=== PATIENT | female | born 1945 | race Native Hawaiian/Other Pacific Islander ===

== ENCOUNTER 2017-01-11 13:07 | Inpatient (IN) | payer OTHER ==
[~2017-01-11] VITALS: Ht 170.2 cm; Wt 64.0 kg
[2017-01-11] VITALS (16 sets, daily range): BP systolic 84–134; BP diastolic 46–73; TEMP 98–98.5; Ht 170.2 cm; Wt 64.0 kg
[~2017-01-11 13:07] MED LIST: DOCU100C10 PO; PROTONIX20 MG PO
--- NOTE | 2017-01-11 13:20 | NUR ---
PT ADMITTED FROM [facility], PT BROUGHT IN VIA CHANELL CHAIR, PT NON VERBAL AT THIS, UNABLE TO STAND ON HER OWN, PT TOTAL ASSIST. PT ASSISTED INTO BED, SHIRT REMOVED AND GOWN PLACED ON PT.
--- NOTE | 2017-01-11 15:00 | NUR ---
16FR ESCOBAR CATH INSERTED USING ASEPTIC TECH.
--- NOTE | 2017-01-11 15:30 | NUR ---
BLOOD CX DRAWN, LABS ALSO DRAWN PER ORDER.
--- NOTE | 2017-01-11 15:44 | NUR ---
EKG DONE PER R.T.
--- NOTE | 2017-01-11 15:44 | NUR ---
PT TURNED AND REPOSTIONED
--- NOTE | 2017-01-11 15:45 | NUR ---
NOSE SWAB DONE PER KIMBERLY RITTER RN
[2017-01-11 15:52] LABS: PLATELET COUNT 170 K/uL (152-353)
[2017-01-11 16:25] LABS: PARTIAL THROMBOPLASTIN TIME 18.7 SECONDS (24.5-33.6)
[2017-01-11 16:26] LABS: POTASSIUM 4.4 mmol/L (3.6-5.2)
[2017-01-11] MEDS ORDERED: METAMUCIL0.52 GM OR (17:59)
[2017-01-11] MEDS ORDERED: RISP0.25 PO (18:00)
[2017-01-11] MEDS ORDERED: DONE5TAB PO (18:01)
[2017-01-11] MEDS ORDERED: BUSP5TAB2 PO (18:03)
[2017-01-11] MEDS ORDERED: NAMENDA5 MG OR (18:05)
[2017-01-11] MEDS ORDERED: MEMA5TAB OR (18:06)
[2017-01-11] MEDS ORDERED: LEXAPRO10 MG OR (18:08)
[2017-01-11] MEDS ORDERED: ALUMSUS6 PO (18:11)
[2017-01-11] MEDS ORDERED: MUPI2OIN2 TOP (18:12)
[2017-01-11] MEDS ORDERED: TYLENOL325 MG OR (18:14)
[2017-01-11] MEDS ORDERED: MAGNSUS68 PO (18:15)
[2017-01-11] MEDS ORDERED: LORA2INJ21 INJ (18:18)
[2017-01-11] MEDS ORDERED: ZIPR20IN IM (18:20)
[2017-01-11] MEDS ORDERED: HALO5INJ3 IM (18:23)
[2017-01-11] MEDS ORDERED: DIVA500T2 OR (18:25)
--- NOTE | 2017-01-11 19:39 | NUR ---
FLUIDS INFUSING W/O DIFF. ESCOBAR TO BSD. PT RESTING AT THIS TIME, NO DISTRESS NOTED. PT HAS BEEN CALM.
--- NOTE | 2017-01-11 20:08 | NUR ---
BLOOD DRAWN AT THIS TIME FOR LABS
--- NOTE | 2017-01-11 23:08 | NUR ---
PATIENT BLOOD DRAWN FOR LABS WITHOUT COMPLICATION
[2017-01-12] VITALS (22 sets, daily range): BP systolic 92–137; BP diastolic 40–67; TEMP 97.8–99.5
--- NOTE | 2017-01-12 00:19 | NUR ---
[facility] CALLED IN @ [phone]. DR ABDALLA NOTIFIED BY PHONE @ [phone]. NO NEW ORDERS GIVEN AT THIS TIME.
--- NOTE | 2017-01-12 03:48 | NUR ---
PATIENT ASLEEP AND AWAKES AT TURNING WITH CONFUSED RESPONSE. NO DISTRESS NOTED
[2017-01-12 06:32] LABS: PLATELET COUNT 167 K/uL (152-353)
[2017-01-12 06:49] LABS: POTASSIUM 3.7 mmol/L (3.6-5.2)
--- NOTE | 2017-01-12 07:30 | NUR ---
AM ASSESSMENT DONE. FACIAL CARE AND MOUTHCARE DONE
--- NOTE | 2017-01-12 09:37 | NUR ---
P.T. CAME BY TO ASK ABOUT PTS STATUS. PT UNABLE TO FOLLOW COMMANDS AT THIS TIME AND PT ALSO DOES NOT WANT TO BE TOUCHED AND HOLLERS WHEN TOUCHED
--- NOTE | 2017-01-12 10:15 | NUR ---
FLUIDS INCREASED TO 175ML/HR
--- NOTE | 2017-01-12 10:25 | NUR ---
DR TOLEDO AT BS
--- NOTE | 2017-01-12 11:13 | NUR ---
PT WAS ASKED TO LIFT HER ARM, PT FOLLOWED THAT COMMAND, HAS NOT FOLLOWED ANY OTHER COMMANDS. PT WAS ASKED WHY SHE WAS SHAKING HER FOOT, WAS SHE BECOMING INPATIENT(PT WAS GETTING A BATH) PT VOICED "YES"
--- NOTE | 2017-01-12 14:32 | NUR ---
DR TOLEDO IN TO SEE PT
--- NOTE | 2017-01-12 14:34 | NUR ---
PT SISTER CALLED TO CHECK ON HER, INFO GIVEN ON VISITING HOURS. VERBALIZED UNDERSTANDING.
[2017-01-12 15:25] LABS: POTASSIUM 3.3 mmol/L (3.6-5.2)
--- NOTE | 2017-01-12 18:38 | NUR ---
PT RESTING WITH EYES CLOSED AT THIS TIME. ESCOBAR TO BSD. FLUIDS INFUSING W/O DIFF. PT HAS NOT BEEN COMBATIVE DURING THE SHIFT. PT IS NOT STIFF PREVIOUSLY IN AM
--- NOTE | 2017-01-12 21:30 | NUR ---
LAB STAFF AT TO OBTAIN BLOOD. PT TOLERATING PROCEDURE WELL.
[2017-01-12 21:58] LABS: POTASSIUM 3.5 mmol/L (3.6-5.2)
[2017-01-13] VITALS (22 sets, daily range): BP systolic 11–128; BP diastolic 47–79; TEMP 97.9–99.3
[2017-01-13 06:45] LABS: PLATELET COUNT 189 K/uL (152-353)
--- NOTE | 2017-01-13 08:00 | NUR ---
AM ASSESSEMENT DONE PT REPOSITIONED. CALLING OUT AT TIMES. IV FLUIDS AT 175 ML HR. NOTED DARK URINE IN BAG. PT KEEPING EYES CLOSED.
--- NOTE | 2017-01-13 10:00 | NUR ---
HOLDING PO MEDS FOR NOW, CHECK PT SLEEPING MOST OF TIME WILL CONTINUE TO MONITOR.
--- NOTE | 2017-01-13 11:30 | NUR ---
BLOOD SUGAR 153, HOLDING INSULIN UNTIL PT AWAKE ENOUGH TO START EATING MOUTH CARE DONE. IV FLUID INFUSING AT 175 HR. HOB UP REPOSITIONED IN BED.
--- NOTE | 2017-01-13 14:00 | NUR ---
SHERON DOBBS LUMBER PILER AND DR WATSON HERE CHECKED PT. PT TALKING TO MD NOTED SOME CONFUSION AT TIMES IMPROVED LOC. WILL TRY TO GIVE PO MEDS AND SOME ENSURE TODAY. SOFT FOODS LIKE PUDDING.
--- NOTE | 2017-01-13 16:30 | NUR ---
BLOOD SUGAR 156. NO INSULIN GIVEN. IV FLUIDS CONTINUE WITHOUT DIFFICULTY. PT TAKING SIPS OF ENSURE. RECIEVED PO MEDS. PT SPITTING AT TIMES. ASSSITED. SPORATIC TALKING CONFUSED.
--- NOTE | 2017-01-13 20:00 | NUR ---
PM ASSESSMENT COMPLETED. PT ADMITTED WITH DEMENTIA AND ELEVATED LACTIC ACID. PT. PT IS SINGING AND TALKING. PT SPEAKS OF DOMINIQUE AND GOD.
[2017-01-14] VITALS (23 sets, daily range): BP systolic 88–125; BP diastolic 42–73; TEMP 97.8–100
--- NOTE | 2017-01-14 03:30 | NUR ---
PT WAS GIVEN TOTAL BED BATH. NOTED PT HAS SKIN BREAKDOWN. FEET SCALY AND DRY. PT WITH SKIN TEAR TO HER LEFT UPPER ARM. PT WITH 2ND DEGREE PRESSURE ULCER TO COCCYX. AREAS WERE CLEANED AND DRESSED. PT CALM AFTER BATH. PT WAS POSITIONED ON HER LEFT SIDE.
[2017-01-14 07:50] LABS: PLATELET COUNT 251 K/uL (152-353)
[2017-01-14 07:52] LABS: POTASSIUM 3.2 mmol/L (3.6-5.2); SODIUM 140 mmol/L (136-145)
--- NOTE | 2017-01-14 11:05 | NUR ---
CHANGED DRESSING ON LEFT UPPER ARM REINFORCED WITH TELFA PAD AND MUPIROCIN
[2017-01-15] VITALS (21 sets, daily range): BP systolic 90–144; BP diastolic 40–89; TEMP 97.6–98.9
[2017-01-15 06:33] LABS: PLATELET COUNT 281 K/uL (152-353)
[2017-01-15 06:44] LABS: POTASSIUM 2.8 mmol/L (3.6-5.2); SODIUM 144 mmol/L (136-145)
--- NOTE | 2017-01-15 07:13 | NUR ---
LE 1900PM PT IN WITH SEPSIS. PT IS A 71 YEAR OLD U PATIENT. PT DOES HAVE ALTERED MENTAL STATUS AND DEMENTIA. PT RESTING WITH EYES CLOSED. PT WAS TURNED AND REPOSITED EVERY 2 HOURS AND ORAL CARE GIVEN.
--- NOTE | 2017-01-15 12:30 | NUR ---
CHANGED DRESSING ON PATIENT'S COCCYX NOTED A 4 CM RED AREA SKIN TEAR ON RIGHT BUTTOCKS DRESSED WITH SILVADINE AND TEGADERM
--- NOTE | 2017-01-15 19:30 | NUR ---
PT YELLS "HELP ME THERE IS A ROBBER." PT FALLS BACK ASLEEP. RESP EVEN AND ULABORED. SHIFT ASSESSMENT COMPLETED.
--- NOTE | 2017-01-15 23:21 | NUR ---
PT STATES SHE IS FRIGHTENED. GIVEN ATIVAN 1MG IV ORDERED
[2017-01-16] VITALS (23 sets, daily range): BP systolic 96–163; BP diastolic 50–80; TEMP 98–98.3
--- NOTE | 2017-01-16 06:02 | NUR ---
RADIOLOGY PRESENT FOR CHEST X-RAY
[2017-01-16 06:11] LABS: PLATELET COUNT 311 K/uL (152-353)
[2017-01-16 06:36] LABS: POTASSIUM 3.1 mmol/L (3.6-5.2); SODIUM 138 mmol/L (136-145)
--- NOTE | 2017-01-16 07:00 | NUR ---
PT IN HF WITH EYES CLOSED,APPEARS TO BE RESTING,CALLS OUT LOUDLY AT INTERVALS ,CALLS OUT TO GOD ,OR JUST HOLLERS LOUDLY. WHEN ASKED IF SHES OK, PT SAYS,'IM FINE, WHY DO YOU KEEP ASKING THAT'.
--- NOTE | 2017-01-16 08:00 | NUR ---
PT TURNED/REPOSITIONED,PT PUSHES AGAINST YOU & PROTESTS,GRABS AT YOUR ARMS WHEN YOU TURN HER. PERICARE,SPONGE BATH,CHUX CHANGE,WOUND CARE TO SACRAL DECUBITUS. NO S/SX INFECTION IN SACRAL WOUND. SEE WOUND CARE NOTES.
--- NOTE | 2017-01-16 08:35 | NUR ---
JOSE R & MARIA DEL [employer] FX REPORTED TO KLAUDIA GILBERT RN.
--- NOTE | 2017-01-16 09:43 | NUR ---
ST IN TO EVAL PT,[T REFUSED TO OPEN MOUTH FOR ANY PO FOOD OR DRINK.
--- NOTE | 2017-01-16 12:11 | NUR ---
PT CALLING OUT LOUDLY NOT REALLY SAYING WORDS JUST HOLLERING LOUDLY, MEDICATED WITH ATIVAN 1MG SIVP.
--- NOTE | 2017-01-16 14:18 | NUR ---
CONSENT OBTAINED PER TELEPHONE FROM PT'S SISTER,WITNESSED PER GALLITO WARD RN,REPORTED TO SHERON DOBBS APRN. EXPLAINED TO SISTER PT'S NOT EATING & NEED FOR NUTRITION.
--- NOTE | 2017-01-16 15:49 | NUR ---
DR SKELTON NOTIFIED OF CONSULT FOR PEG TUBE. NEW ORDERS. PT'S SISTER NOTIFIED THAT PT WILL PROBABLY HAVE PEG INSERTED IN AM.
--- NOTE | 2017-01-16 17:30 | NUR ---
PT RESTING WITH NO C/O.RESTS AT INTERVALS. CALLS OUT LOUDLY AT INTERVALS.
[2017-01-17] VITALS (30 sets, daily range): BP systolic 96–148; BP diastolic 48–90; TEMP 98–99.5
[2017-01-17 06:52] LABS: PLATELET COUNT 309 K/uL (152-353)
[2017-01-17 06:53] LABS: POTASSIUM 3.8 mmol/L (3.6-5.2); SODIUM 136 mmol/L (136-145)
--- NOTE | 2017-01-17 08:50 | NUR ---
PT NPO THIS AM, PT TO OR FOR PEG TUBE PLACEMENT. VIA BED
--- NOTE | 2017-01-17 10:32 | NUR ---
PT BACK TO ICU FROM OR. ABDOMINAL BINDER INTACT. NO DISTRESS NOTED.
--- NOTE | 2017-01-17 10:32 | NUR ---
BACK FROM SURGERY RESTING WITH EYES CLOSED PLACED ON MONITOR. IV FLUIDS RESUME.
--- NOTE | 2017-01-17 12:01 | NUR ---
PT'S SISTER VISITED TALKED WITH PT. DR SKELTON HERE TALKED WITH SISTER. PT RESTING QUIETLY.
--- NOTE | 2017-01-17 15:00 | NUR ---
PT RESTING QUIETLY REPOSITIONED IN BED. PT HAS HARD JEWEL BEARING FACER WILL NOT RELEASE. IV NOT FLUSHING , REMOVED TAPE WENT DOWN TO HUB, REPOSITIONED HUB FLUSHED EASILY NO BLOOD RETURN, IV FLUIDS STARTED AT KVO. TO PREVENT LOSING IV. CHECKED PEG TUBE UNDER ABD WRAP CLEAN AND DRY.
--- NOTE | 2017-01-17 17:06 | NUR ---
PT RECIEVED BED BATH BED CHANGED. WOUND CARE DONE, CLEANED COCCYX AREA APPLIED SILVADENE ORDERED WILL HOLD DRESSING FOR NOW. CLEANED ARE LEFT INNER THIGH LOOKS LIKE PT MAY HAVE SCRAPPED IT WITH HER FINGER NAIL APPLIED BACTRABAN ONIT. ESCOBAR CARE BATH DONE. PT CALLING OUT LOUD AT TIMES NICOLE OK. RESTING ON LEFT SIDE.
--- NOTE | 2017-01-17 19:40 | NUR ---
RCD PT AWAKE CONFUSED ESCOBAR S/D IVAT 50/HR
--- NOTE | 2017-01-17 23:00 | NUR ---
TURNED RESTING AT PRESENTS
[2017-01-18] VITALS (14 sets, daily range): BP systolic 108–161; BP diastolic 45–91; TEMP 98–98.7
--- NOTE | 2017-01-18 | NUR ---
TURNED AND REPOSITIONED CONFUSED CALLING FOR MAGUE MONITOR SR G TUBE TO STRAIGHT DRAIAGE BILE COLOR
--- NOTE | 2017-01-18 02:00 | NUR ---
TURNED REPOSITIONRD MONITOR SR
[2017-01-18 06:55] LABS: PLATELET COUNT 371 K/uL (152-353)
[2017-01-18 07:16] LABS: POTASSIUM 3.2 mmol/L (3.6-5.2); SODIUM 137 mmol/L (136-145)
--- NOTE | 2017-01-18 07:30 | NUR ---
RECIEVED REPORT PT RESTING QUIETLY. NO ACUTE DISTRESS.
--- NOTE | 2017-01-18 09:00 | NUR ---
DR GARCIA AND SHERON DOBBS BOTTOM BLEACHER VISITED CHECKED PT JUNE BEGAN USING PEG. REMOVED GRAVITY DRAINAGE BAG DISCARD. CHECKED PEG NO RESIDUAL. AM MEDS CRUSHED AND GIVEN BY PEG PT RECIEVED 1 CAN JEVITY 1.5 PT RECIEVED 60 ML OF WATER BEFORE AND AFTER FEEDING. NICOLE OK HOB UP.
--- NOTE | 2017-01-18 10:00 | NUR ---
BLADDER TRAINING STARTED
--- NOTE | 2017-01-18 13:00 | NUR ---
PT REQUESTING WATER, PT TOLERATED WELL. BUTTOCK NOTED TO BE HEALING. STAGE 1, RED AREA.
--- NOTE | 2017-01-18 14:00 | NUR ---
MOUTHCARE DONE AGAIN
--- NOTE | 2017-01-18 14:00 | NUR ---
IV CATH REMOVED, TIP INTACT
--- NOTE | 2017-01-18 16:00 | NUR ---
REPORT GIVEN TO KIMBERLY/RN AT [facility].
--- NOTE | 2017-01-18 16:01 | NUR ---
ESCOBAR CATH REMOVED, PT TOLERATED WELL
--- NOTE | 2017-01-18 16:10 | NUR ---
ATTEMPTED TO FEED PT VIA PEGTUBE, RESIDUAL GREATER THAN 60ML NOTED, FEEDING HELP. SHERON/SERA AWARE.
--- NOTE | 2017-01-18 17:15 | NUR ---
PT TRANSFERRED BACK TO [facility]
[2017-01-18] MEDS ORDERED: JEVITY 1.5 PEG (21:29)
== END 2017-01-18 17:05 | disposition other institution (70) | DRG 871 ==
LOC: ICU 13:07
PROVIDERS: Specialist
PROC: 0DH63UZ Insertion of Feeding Device into Stomach, Percutaneous Approach (ICD-10-PCS; principal; 2017-01-17)
DX: A41.89 Other specified sepsis (principal); J18.8 Other pneumonia, unspecified organism; E87.0 Hyperosmolality and hypernatremia; E46 Unspecified protein-calorie malnutrition; M62.82 Rhabdomyolysis; E83.42 Hypomagnesemia; F03.90 Unspecified dementia, unspecified severity, without behavioral disturbance, psychotic disturbance, mood disturbance, and anxiety; K21.9 Gastro-esophageal reflux disease without esophagitis; K59.09 Other constipation; R13.19 Other dysphagia; K29.60 Other gastritis without bleeding; L89.152 Pressure ulcer of sacral region, stage 2; R53.1 Weakness
CPT/HCPCS: 36415; 51702; 80048; 80053; 81000; 82550; 82553; 82570; 82962; 83605; 83735; 83880; 84100; 84300; 84484; 85027; 85610; 85730; 86140; 87040; 87070; 87077; 87088; 87186; 93005; 94760; 96365; 96372; J0744; J1650; J1720; J2060; J2250; J2270; J2543; J2704; J3480; J3490; J7120

== ENCOUNTER 2017-01-26 14:30 | Inpatient (IN) | payer OTHER ==
[~2017-01-26] VITALS: Ht 170.2 cm; Wt 58.5 kg
[2017-01-26] VITALS (13 sets, daily range): BP systolic 111–130; BP diastolic 48–61; TEMP 98.7; Ht 170.2 cm; Wt 58.5 kg
[~2017-01-26 14:30] MED LIST changes: +ALUMSUS6 PO; +BUSP5TAB2 PO; +DIVA500T2 OR; +DONE5TAB PO; +HALO5INJ3 IM; +JEVITY 1.5 PEG; +LEXAPRO10 MG OR; +LORA2INJ21 INJ; +MAGNSUS68 PO; +MEMA5TAB OR; +METAMUCIL0.52 GM OR; +MUPI2OIN2 TOP; +NAMENDA5 MG OR; +RISP0.25 PO; +TYLENOL325 MG OR; +ZIPR20IN IM
--- NOTE | 2017-01-26 16:35 | NUR ---
PT TO ICU3 DIRECT ADMIT FROM BHU.PT PALE WITH EDEMA TO L ARM ,KEEPS BOTH ARMS FOLDED ON HER CHEST,MUMBLES & FRONS BUT IS NON VERBAL.CLOSES EYES & LAYS IN ALMOST A POSITION. 22G INSYTE SALINE LOCK INTACT R FA. ESCOBAR CATH INTACT FROM BHU WITH CL DK YELLOW URINE. ABD BINDER INTACT TO COVER PEG TUBE.
--- NOTE | 2017-01-26 17:52 | NUR ---
ASSESSMENTS PER LAURY ARRIAZA RN. PT CONTINUES TO REST QUIETLY TURNED & REPOSITIONED,FROWNS WITH TURNING.
--- NOTE | 2017-01-26 19:00 | NUR ---
PT TO CT VIA BED.
--- NOTE | 2017-01-26 19:20 | NUR ---
PT BACK FROM CT.
--- NOTE | 2017-01-26 23:53 | NUR ---
RESTING IN BED WITH EYES CLOSED, NO S/S OF PAIN OR DISTRESS NOTED, IV LOCK INTACT, RESP RATE NONLABORED, DRESSING INTACT TO R FOOT, FEET ELEVATED ON PILLOWS, WILL MOINITOR CLOSELY, RAILS UP X3, BED IN LOW POSITION.
[2017-01-27] VITALS (24 sets, daily range): BP systolic 97–138; BP diastolic 41–92; TEMP 98.4–99.6
--- NOTE | 2017-01-27 00:55 | NUR ---
NOTE PT HAS LARGE DARK BRUISED AREA TO L INNER THIGH. STAGE 2 WOUND TO COCCYX, OLD HEALING WOUND ON R 2ND TOE, SEE CHARTING IN WOUND SECTION.
[2017-01-27] MEDS ORDERED: METOCLOPRAM10 MG PEG (04:18)
[2017-01-27] MEDS ORDERED: MULTI VITAMIN1 TAB PEG (04:20)
[2017-01-27] MEDS ORDERED: ASCORBIC ACD500 MG PEG (04:23)
[2017-01-27] MEDS ORDERED: ZINC220 MG PEG (04:25)
[2017-01-27] MEDS ORDERED: SILV1CRE EX (04:27)
[2017-01-27] MEDS ORDERED: PROTEINE1 PEG (04:33)
[2017-01-27] MEDS ORDERED: TYLENOL325 MG OR (04:35)
[2017-01-27] MEDS ORDERED: EMOLOIN22 TOP (04:36)
[2017-01-27] MEDS ORDERED: ANTI-DIARRHEAL2 MG OR (04:39)
--- NOTE | 2017-01-27 06:31 | NUR ---
01/27/17 AT 0030PT RESTING WITH EYES CLOSED AND LIGHT SNORNING NOTED, IV INTACT TO R HAND WITH FLUID ONGOING AND NO PROBLEMS NOTED TO SITE, RESP RATE NONLABORED, ON ROOM AIR, PT CONTINUES TO BE TURNED AND FEET ELEVATED OFF OF BED ON PILLOW, L HAND/ARM ELEVATED ON PILLOW DUE TO EDEMA, ESCOBAR PATENT DRAINING TO BEDSIDE. ALL BED LINENS CHANGED EALIER WHEN PT HAD LARGE LIQUID BM. WILL MONITOR, RAILS UP X3, CALL IN REACH, BED IN LOW POSITION.
--- NOTE | 2017-01-27 06:40 | NUR ---
01/27/17 AT 0500PT RESTING WITH EYES CLOSED, NO S/S OF DISTRESS NOTED, IV INTACT WITH FLUID ONGOING, ESCOBAR PATENT DRAINING TO BEDSIDE, FEET AND L HAND/ARM ELEVATED ON PILLOWS. MOUTH CARE COMPLETED AND LIP MOISTURIZER APPLIED. PEG TUBE REMAINS INTACT TO ABD. WILL MONITOR, RAILS UP X3, CALL LIGHT IN REACH, BED IN LOW POSITION.
[2017-01-27 06:53] LABS: PLATELET COUNT 243 K/uL (152-353)
[2017-01-27 07:12] LABS: POTASSIUM 2.8 mmol/L (3.6-5.2); SODIUM 136 mmol/L (136-145)
--- NOTE | 2017-01-27 08:42 | NUR ---
AM ASSESSEMENT DONE, PT RESTING QUIETLY EYES CLOSED RESP EVEN. SHERON DOBBS REFERENCE ARCHIVIST VISITED, REQUEST THAT WE CONTACT FAMILY MEMBERS.
--- NOTE | 2017-01-27 10:19 | NUR ---
RESTING QUIETLY EYES CLOSED WILL ONLY SAY A WORD OR TWO. IV POTASSIUM INFUSING ORDERED.
--- NOTE | 2017-01-27 12:51 | NUR ---
KEEPING PT TURNED FROM SIDE TO SIDE. STILL SLEEPING, RESPONDS TO TOUCH, TALKING VERY LITTLE. PT'S SISTER CALLED UPDATE ON HER STATUS. TALKED ABOUT HOSPICE, WILL REPORT TO SHERON ORTIZ.
--- NOTE | 2017-01-27 13:51 | NUR ---
PT TURNED AND REPOSITIONE INC OF LIQUID STOOL CLEANED UP WOUND CARE DONE APPLIED CALAZIME OINT TO BREAKDOWN, ATTEMPT TO KEEP PT OFF BACK SIDE TO SIDE ONLY. REPORT TO SHERON DOBBS FORMULATION TECHNICIAN WILL CALL FAMILY MEMBER SISTER IN [place].
--- NOTE | 2017-01-27 15:07 | NUR ---
SHERON ORTIZ VIVITED SPOKE WITH SISTER IN [place] WILL KEEP PT HERE OVER WEEKEND AND START TRANSFER TO [facility] IN [place] MONDAY. PT RESTING QUIETLY.
--- NOTE | 2017-01-27 16:32 | NUR ---
PT TURNED AND REPOSITIONED IN BED. INC OF LIQUID STOOL CLEANED, NAIN CARE DONE APPLIED OINT TO DECUB. PT RESTING SIDE TO SIDE.
[2017-01-28] VITALS (23 sets, daily range): BP systolic 92–144; BP diastolic 45–88; TEMP 96–99.7
--- NOTE | 2017-01-28 02:56 | NUR ---
PT HAS BEEN RESTING. PT WAS REPOSITIONED TO HIS LEFT SIDE. PT IS TALKATIVE AND CALM. HEELS ARE FLOATING. LOWER EXTREMITIES ARE ELEVATED. ORAL CARE GIVEN. ESCOBAR INTACT WITH URINE DRAINING.
[2017-01-28 05:38] LABS: PLATELET COUNT 201 K/uL (152-353)
--- NOTE | 2017-01-28 05:38 | NUR ---
BLOOD WAS DRAWN AND SENT TO LAB. PT CONTINUES TO BE IN PLEASANT MOOD. HEELS FLOATING AND PT IS CLEAN AND DRY.
[2017-01-28 06:21] LABS: POTASSIUM 3.6 mmol/L (3.6-5.2); SODIUM 137 mmol/L (136-145)
--- NOTE | 2017-01-28 09:00 | NUR ---
SHERON DOBBS VISITED CHECKED PT HOLD FEEDING THIS AM PT RECIEVED MEDS ORDERED VIA PEG NICOLE WELL HOB UP.
--- NOTE | 2017-01-28 12:00 | NUR ---
TURNED AND REPOSITIONED SKIN CARE. PT RESTING SIDE TO SIDE IV FLUIDS CONTINUE WITHOUT DIFFICULTY.
--- NOTE | 2017-01-28 15:00 | NUR ---
PT TURNED INC OF LIQUID BOWEL NO PAIN NOTED NO FACIAL GRIMACE. NAIN CARE DONE APPLIED OINT ORDERED. PT TALKING PLESANT TODAY. RESTING ON LEFT SIDE.
--- NOTE | 2017-01-28 23:24 | NUR ---
PT WAS TURNED AND REPOSITIONED TO HER RIGHT SIDE. PT NPO. ORAL CARE GIVEN.
[2017-01-29] VITALS (13 sets, daily range): BP systolic 118–169; BP diastolic 59–89; TEMP 97–99.3
--- NOTE | 2017-01-29 07:00 | NUR ---
RECIEVED REPORT PT TURNED AND REPOSITIONED INC LIQUID STOOL. NAIN CARE DONE. APPLIED ONIT TO DECUB APPEAR TO BE LOOKING BETTER PT TURNED FROM SIDE TO SIDE. PT TALKING A LITTLE PLESANT.
[2017-01-29 07:03] LABS: PLATELET COUNT 220 K/uL (152-353)
[2017-01-29 07:18] LABS: POTASSIUM 4.2 mmol/L (3.6-5.2); SODIUM 136 mmol/L (136-145)
--- NOTE | 2017-01-29 08:45 | NUR ---
IV LEAKING LEFT HAND SWOLLEN REMOVED IV NO REDNESS CATH INTACT. RESTART IV RIGHT AC 20 GA WITH GOOD BLOOD RETURN. IV FLUIDS RESUME. JONELLE MARTINES SOUND INSTALLATION WORKER VISITED RECIEVED REPORT CHECKED PT RECIEVED ORDERS.
--- NOTE | 2017-01-29 10:30 | NUR ---
JONELLE MARTINES MEDICAL INSTRUCTOR VISITED CHECKED PT RECIEVED NEW ORDERS. PT RESTING QIUIETLY TURNED AND REPOSITIONED.
--- NOTE | 2017-01-29 14:35 | NUR ---
KEEPING PT TURNED ON SIDES, PT STILL HAVING LIQUIDS STOOLS. IV MEDS INFUSING WITHOUT DIFFICULTY. NO COMPLAINTS OF PAIN SINGING AT TIMES.
--- NOTE | 2017-01-29 16:29 | NUR ---
TURNED AND REPOSITIONED PT AWAKE AT TIMES SINGING.
[2017-01-30] VITALS (21 sets, daily range): BP systolic 75–188; BP diastolic 44–82; TEMP 98.8–99.6
--- NOTE | 2017-01-30 06:30 | NUR ---
LAB HERE AND BLOOD WAAS DRAWN FOR AM LABS.
--- NOTE | 2017-01-30 06:31 | NUR ---
PT HAS BEEN TURNED AND REPOSITIONED EVERY 2 HOURS . ORAL CARE DONE.
[2017-01-30 06:40] LABS: PLATELET COUNT 224 K/uL (152-353)
[2017-01-30 07:01] LABS: POTASSIUM 3.7 mmol/L (3.6-5.2); SODIUM 137 mmol/L (136-145)
--- NOTE | 2017-01-30 07:43 | NUR ---
PT INCONTINENT OF STOOL. PT WAS CLEANED. APPLIED LANASEPTIC AND CALAMAZINE TO COCCYX AREA. PT WAS TURNED TO THE RIGHT SIDE. PILLOWS TO BACK FOR SUPPORT.
--- NOTE | 2017-01-30 09:00 | NUR ---
DR GARCIA & SHERON DOBBS CHEMIST FOOD IN TO SEE PT DISCUSSED POSSIBLE TRANSFER TO [facility] IN [place] [facility]. RESTING QUIETLY.
--- NOTE | 2017-01-30 09:00 | NUR ---
SHERON DOBBS APRN & DR GARCIA IN AT BS TALKING WITH PT ABOUT TRANSFER TO MED/SURG AFTER DIALYSIS & DIETETIC TECHNICIAN CARE PLACEMENT.
--- NOTE | 2017-01-30 11:30 | NUR ---
PT TURNED & REPOSITIONED FOR COMFORT. PLEASANT & HOLDS YOUR ARM WHEN YOU MOVE HER.
--- NOTE | 2017-01-30 13:45 | NUR ---
PERICARE FOR LOOSE BROWN BM. SIILVADENE TO COCCYX, WOUND HEALING WELL & DECREASING IN SIZE.CALAZINE TO BUTTOCKS & NAIN AREA.
--- NOTE | 2017-01-30 17:30 | NUR ---
PT PULLED OUT IV,SITE SECURED. RESTARTED,INSERTED 22G R HAND X 1STICK. SITE SECURED.
[2017-01-31] VITALS (23 sets, daily range): BP systolic 83–165; BP diastolic 46–76; TEMP 97–98.9
--- NOTE | 2017-01-31 00:33 | NUR ---
BATHED PT AND PT WAS GIVEN SKIN CARE. ORAL CARE WAS GIVEN, LIPS WERE LUBRICATED.PT HAS THICK WHITE PASTY COVERED TONGUE. LINENS WERE CHANGED. GOWN CHANGED. PT'S COCCYX WAS REASSESSED. AREA IS HEALING.
[2017-01-31 05:21] LABS: PLATELET COUNT 218 K/uL (152-353)
[2017-01-31 05:39] LABS: POTASSIUM 3.4 mmol/L (3.6-5.2); SODIUM 137 mmol/L (136-145)
--- NOTE | 2017-01-31 08:30 | NUR ---
AM ASSESSMENT COMPLETE
--- NOTE | 2017-01-31 17:30 | NUR ---
PT INCONT OF STOOL, PT CLEANED AND DRYED. PT HAS BEEN CLALM AND COOPERATIVE DURIING THIS SHIFT. SIDDHARTH/S.T. WILL BE BACK TO SEE PT IN A FEW DAYS. ESCOBAR TO BSD, FLUIDS INFUSING W/O DIFF
--- NOTE | 2017-01-31 19:30 | NUR ---
RCD PT RESTING IN BED EYES CLOSED MONITOR SR HOB ELEVATED PEG IN PLACE CLAMPED ESCOBAR SD
--- NOTE | 2017-01-31 20:30 | NUR ---
TURNED AND POSITIONED ON R SIDE NO CHANGE
[2017-02-01] VITALS (16 sets, daily range): BP systolic 108–172; BP diastolic 40–85; TEMP 98–99
--- NOTE | 2017-02-01 | NUR ---
TURNED AND POSITIONED MOUTH CARE GIVEN.ALERT MONITOR SR NO C/O
--- NOTE | 2017-02-01 02:02 | NUR ---
TURNED AND REPOSITIONED ALERT STABLE .MONITOR SB 58/59. NO C/O
--- NOTE | 2017-02-01 04:00 | NUR ---
TURNED AND REPOSITIONEE ALERT SMILING MONITOR SR
--- NOTE | 2017-02-01 05:29 | NUR ---
REPOSITIONED ON SIDE NO C/O AT THIS TIME NO CHANGE OUTPUT 1000CC PEG REMAINS CLAMPED
--- NOTE | 2017-02-01 06:13 | NUR ---
BLOOD DRAWN TO LAB RESTING IN BED
[2017-02-01 06:24] LABS: PLATELET COUNT 249 K/uL (152-353)
[2017-02-01 06:36] LABS: POTASSIUM 3.7 mmol/L (3.6-5.2); SODIUM 139 mmol/L (136-145)
--- NOTE | 2017-02-01 08:00 | NUR ---
RECIEVED BED BATH BED CHANGED REPOSITIONED IN BED INFORMED SHERON ORTIZ PT CONDITION AND WOUND SITE APPERANCE.
--- NOTE | 2017-02-01 08:17 | NUR ---
RECIEVED REPORT AM ASSESMENT DONE PT RESTING QUIETLY, INC OF BM. CLEANED TURNED NAIN CARE DONE.
--- NOTE | 2017-02-01 09:00 | NUR ---
PT BATHED, LINEN CHANGED, ELECTRODES ON PT CHANGED. PT HAD A LARGE BOWEL MOVEMENT.
--- NOTE | 2017-02-01 12:00 | NUR ---
PT TURNED REPOSITIONED KEEPING PT TURNED ON SIDE TO SIDE. MOUTH CARE DONE. IV FLUIDS CONTINUE.
--- NOTE | 2017-02-01 16:00 | NUR ---
FOUND IV OUT, PT WILL PULL ON LINE LEAKING IV FOUND OUT. COVER WET. PT TURNED CHANGD BED COVER SKIN CARE. FOUND IV SITE RIGHT WRIST STARTED 20 GA X1 STICK WITH GOOD BLOOD RETURN. IV FLUIDS RESUME. SITE TAPED WITH PAPER TAPE AND WRAPPED WITH ROSSI, TO COVER SITE. PT NICOLE WELL.
--- NOTE | 2017-02-01 16:56 | NUR ---
SPOKE WITH KLAUDIA GILBERT RN AND SHERON DOBBS SALESPERSON PARTS, ABOUT PICC LINE PLACEMENT ON PATEINT. ATTEMPTED TO CALL PATIENTS SISTER FOR A TWO NURSE CONSENT, NO ANSWER ON FIRST PHONE CALL.
--- NOTE | 2017-02-01 19:48 | NUR ---
PT AGITATED. STATES "EVERYONE IS TRYING TO BOTHER ME". PT YELLS AND STATES SHE IS GOING TO CALL THE POLICE. PT SHAKING HER RIGHT LEG. MEDICATED PT WITH 1 MG ATIVAN IVSP. ORINETED PT TO THE SITUATION. PT RESPONDED PLEASANTLY.
--- NOTE | 2017-02-01 20:39 | NUR ---
AGITATION IS RESOLVED AND PT IS RESTING QUIETLY.
--- NOTE | 2017-02-01 21:13 | NUR ---
HEELS ARE FLOATING. PT IS CLEAN AND DRY. ORAL CARE GIVEN.
--- NOTE | 2017-02-01 22:21 | NUR ---
PT WAS REPOSITIONED TO HER LEFT SIDE AND 2 PILLOWS PLACED TO PT BACK FOR SUPPORT. HEELS ARE FLOATING. ORAL CARE GIVEN.
[2017-02-02] VITALS (21 sets, daily range): BP systolic 119–181; BP diastolic 53–81; TEMP 97.8–98.9
--- NOTE | 2017-02-02 00:25 | NUR ---
PT FOR PICC LINE TOMORROW. PT CALM AND RESTING WITH EYES CLOSED.
[2017-02-02 05:07] LABS: PLATELET COUNT 256 K/uL (152-353)
[2017-02-02 05:27] LABS: POTASSIUM 3.5 mmol/L (3.6-5.2); SODIUM 138 mmol/L (136-145)
--- NOTE | 2017-02-02 06:11 | NUR ---
PT POSITIONED ON BACK. PT TO HAVE XRAY. ORAL CARE DONE. PT IS RESISTANCE TO ORAL CARE. LEFT UPPER EXT HAS EDEMA. POSITIONED LEFT ARM ELEVATED TO DECREASE EDEMA.
--- NOTE | 2017-02-02 09:30 | NUR ---
PT RESTING QUIETLY THIS AM RECIEVED AM MEDS. SHERON DENTP VISITED. CHECKED PT NO NEW ORDERS. PT TO GET PICC LINE INSERTED TODAY.
--- NOTE | 2017-02-02 11:28 | NUR ---
FRANCISCO EDMOND CRNA HERE CHECKED PT CHECK CHART. CONSENT VIA PHONE SIGNED YESTERDAY. STARTED PICC LINE INSERTION. EXPLAINED ALL PROCEDURES TO PATIENT.
--- NOTE | 2017-02-02 13:09 | NUR ---
WAITING FOR CHEST X RAY TO CONFIRM PLACEMENT. ABD US DONE. PT RESTING QUIETLY. HOB UP REPOSITIONED NO ACUTE DISTRESS.
--- NOTE | 2017-02-02 13:17 | NUR ---
CHEST X RAY DONE PT TURNED TO RIGHT SIDE.
--- NOTE | 2017-02-02 15:01 | NUR ---
RECIEVED REPORT FROM FRANCISCO EDMOND CRNA OK TO USE LINE.
--- NOTE | 2017-02-02 15:16 | NUR ---
FLUSHED IV PICC LINES, IV FLUIDS CHANGED OVER TO PICC LINE PROCAL AT 50 VIA ONE PORT AND D5 1/2 AT 50 VIA SECOND PORT. PT NICOLE WELL.
--- NOTE | 2017-02-02 18:43 | NUR ---
RESTING QUIETLY IV FLUIDS INFUSING WITHOUT DIFFICULTY. PT AWAKE ALERT.
[2017-02-03] VITALS (16 sets, daily range): BP systolic 124–181; BP diastolic 49–88; TEMP 97.8–98.3
[2017-02-03 05:49] LABS: PLATELET COUNT 286 K/uL (152-353)
[2017-02-03 06:01] LABS: POTASSIUM 3.5 mmol/L (3.6-5.2); SODIUM 138 mmol/L (136-145)
--- NOTE | 2017-02-03 07:50 | NUR ---
IV TO RHAND REMOVED BY PT
--- NOTE | 2017-02-03 08:30 | NUR ---
AM ASSESSMENT COMPLETE
--- NOTE | 2017-02-03 08:40 | NUR ---
DR GARCIA/SHERON AT BS
--- NOTE | 2017-02-03 11:00 | NUR ---
1/2 CAN ENSURE GIVEN VIA PEGTUBE, 60CC H20 FLUSH BEFORE AND AFTER. HOB UP 30DEGREES. WILFRED FEET FLOATING
--- NOTE | 2017-02-03 14:15 | NUR ---
ASSISTED PT BACK TO BED, PT INCONT OF STOOL, PT CLEANED AND DRYED. ANIN AREA CLEANED, MOUTHCARE DONE, UNDERARMS CLEANED
--- NOTE | 2017-02-03 17:30 | NUR ---
ROM PERFORMED TO WILFRED UPPER AND LOWER EXT, PT TOLERATED WELL.
--- NOTE | 2017-02-03 17:58 | NUR ---
ORDER TO TRANSFER PT TO MED SURG RECIEVED
--- NOTE | 2017-02-03 18:47 | NUR ---
PT TRANSFERRED TO [facility]
[2017-02-04] VITALS: BP 113/50; TEMP 97.6
[2017-02-04 04:49] LABS: PLATELET COUNT 287 K/uL (152-353)
[2017-02-04 05:08] LABS: POTASSIUM 3.4 mmol/L (3.6-5.2); SODIUM 138 mmol/L (136-145)
[2017-02-04 08:00] VITALS: BP 132/57; TEMP 98.2
--- NOTE | 2017-02-04 10:00 | NUR ---
PT TOLERATED FEEDING WELL VIA PEG TUBE. NO PROBLEMS NOTED.
[2017-02-04 12:00] VITALS: BP 133/51; TEMP 98.5
[2017-02-04 16:00] VITALS: BP 135/60; TEMP 98.8
--- NOTE | 2017-02-04 17:45 | NUR ---
PT GIVEN 1/2 CAN OF ENSURE ORDERED VIA PEG TUBE. NO PROBLEMS NOTED.
[2017-02-04 20:00] VITALS: BP 129/54; TEMP 98.5
[2017-02-05] VITALS: BP 114/48; TEMP 97.6
[2017-02-05 04:00] VITALS: BP 114/53; TEMP 98.4
[2017-02-05 06:38] LABS: PLATELET COUNT 227 K/uL (152-353)
[2017-02-05 07:01] LABS: POTASSIUM 3.6 mmol/L (3.6-5.2); SODIUM 141 mmol/L (136-145)
[2017-02-05 08:00] VITALS: BP 113/51; TEMP 98.6
[2017-02-05 12:00] VITALS: BP 124/55; TEMP 98.8
[2017-02-05 16:00] VITALS: BP 134/60; TEMP 98
[2017-02-05 20:00] VITALS: BP 123/55; TEMP 98.5
[2017-02-06] VITALS: BP 102/50; TEMP 97.4
[2017-02-06 04:00] VITALS: BP 117/60; TEMP 97.5
[2017-02-06 05:12] LABS: PLATELET COUNT 358 K/uL (152-353)
[2017-02-06 05:28] LABS: POTASSIUM 3.3 mmol/L (3.6-5.2); SODIUM 142 mmol/L (136-145)
[2017-02-06 08:17] VITALS: BP 128/53; TEMP 98.8
--- NOTE | 2017-02-06 09:30 | NUR ---
MEDS CRUSHED AND GIVEN PER PEG TUBE ORDERED. RESIDUAL CHECKED PRIOR TO ADMINISTRATION. 60CC RESIDUAL NOTED. FEEDING HELD AT THIS TIME. WILL RECHECK RESIDUAL IN A COUPLE HOURS. PT HIGH FOWLERS. NAD NOTED
[2017-02-06 12:00] VITALS: BP 129/48; TEMP 97.8
--- NOTE | 2017-02-06 13:33 | NUR ---
PT CLEANED AND TURNED ON LEFT SIDE AT THIS TIME.
[2017-02-06 16:00] VITALS: BP 131/56; TEMP 97.2
--- NOTE | 2017-02-06 16:05 | NUR ---
PT CLEANED AND TURNED AT THIS TIME. PT TOLERATED WELL.
--- NOTE | 2017-02-06 17:23 | NUR ---
RESIDUAL CHECKED AT THIS TIME. GREATER THAN 60CC NOTED. FEEDING HELD AT THIS TIME. WILL RECHECK RESIDUAL LATER.
[2017-02-06 20:00] VITALS: BP 127/55; TEMP 99
[2017-02-07] VITALS: BP 118/51; TEMP 99
[2017-02-07 04:00] VITALS: BP 156/78; TEMP 97.8
[2017-02-07 06:28] LABS: PLATELET COUNT 204 K/uL (152-353)
[2017-02-07 08:00] VITALS: BP 125/57; TEMP 97.6
[2017-02-07 08:41] LABS: POTASSIUM 3.7 mmol/L (3.6-5.2); SODIUM 142 mmol/L (136-145)
--- NOTE | 2017-02-07 10:00 | NUR ---
PT TOLERATED 3/4 CAN OF ENSURE VIA PEG TUBE WELL. NO PROBLEMS NOTED.
[2017-02-07 12:00] VITALS: BP 137/56; TEMP 98.3
--- NOTE | 2017-02-07 15:58 | NUR ---
02/06/17 CALLED PATIENT'S SISTER TODAY TO INFORM HER THAT PATIENT WAS ALMOST READY FOR DISCHARGE AND THAT SHE NEEDED TO MAKE ARRANGEMENTS WITH A LTCF FOR PATIENT TO BE DISCHARGED TO A LTCF OR EITHER SHE NEEDED TO MAKE THE NECESSARY ARRANGEMENTS TO CARE FOR PATIENT AT HOME. UNABLE TO REACH PATIENT'S SISTER, LEFT MESSAGE FOR SISTER TO CALL ME R/T I NEEDED TO SPEAK WITH HER ABOUT HER SISTER.
[2017-02-07 16:00] VITALS: BP 130/58; TEMP 97.6
--- NOTE | 2017-02-07 16:19 | NUR ---
CALLED PATIENT'S SISTER AGAIN TODAY R/T PATIENT'S SISTER NEVER RETURNED MY CALL YESTERDAY. I WAS STILL UNABLE TO REACH ANYONE, LEFT MESSAGE AGAIN.
[2017-02-07 20:00] VITALS: BP 124/57; TEMP 98.6
[2017-02-08] VITALS: BP 102/46; TEMP 98.9
[2017-02-08 04:00] VITALS: BP 136/58; TEMP 98.3
[2017-02-08 06:41] LABS: PLATELET COUNT 190 K/uL (152-353)
[2017-02-08 06:50] LABS: POTASSIUM 3.7 mmol/L (3.6-5.2); SODIUM 141 mmol/L (136-145)
[2017-02-08 08:19] VITALS: BP 129/57; TEMP 98.3
--- NOTE | 2017-02-08 09:00 | NUR ---
LESS THAN 10CC RESIDUAL AT THIS TIME. FEEDING AND AM M EDS PROVIDED ORDERED. HOB ELEVATED. PT TOLERATED WELL.
--- NOTE | 2017-02-08 10:51 | NUR ---
CALLED AND SPOKE WITH PATIENT'S SISTER ABOUT PATIENT'S CARE AND PRISON PLACEMENT. SISTER REQUESTED THE WE TRY TO ARRANGE PLACEMENT AT [facility] IN [facility].
[2017-02-08 11:44] VITALS: BP 123/57; TEMP 98.1
--- NOTE | 2017-02-08 13:00 | NUR ---
NO RESIDUAL NOTED AT THIS TIME. 1 CAN ENSURE PLUS GIVEN VIA PEG ORDERED AT THIS TIME. PT TOLERATED WELL. HOB ELEVATED
--- NOTE | 2017-02-08 14:00 | NUR ---
PT TRAY IN ROOM. PT FEEDING SELF AT THIS TIME. NAD NOTED. ASSISTANCE PROIVDED PER TECH.
[2017-02-08 16:00] VITALS: BP 122/59; TEMP 99
[2017-02-08 20:00] VITALS: BP 123/56; TEMP 98.7
[2017-02-09] VITALS: BP 121/59; TEMP 98.7
[2017-02-09 04:00] VITALS: BP 130/62; TEMP 97.8
--- NOTE | 2017-02-09 04:12 | NUR ---
ON 0400 ROUND, PICC LINE NOTED TO BE OUT OF RIGHT ARM LYING IN BED, NO BLEEDING NOTED FROM SITE, TUBING APPEARED TO BE INTACT PER THIS NURSE & CHARGE NURSE YAZMIN CRAIG RN.
[2017-02-09 06:54] LABS: POTASSIUM 3.6 mmol/L (3.6-5.2); SODIUM 141 mmol/L (136-145)
[2017-02-09 08:00] VITALS: BP 107/52; TEMP 97.7
[2017-02-09 08:20] LABS: PLATELET COUNT 379 K/uL (152-353)
--- NOTE | 2017-02-09 08:57 | NUR ---
CALLED AND SPOKE WITH RADHA AT [facility] YESTERDAY @1400 AND SHE SAID THAT THEY HAD A BED AND REQUESTED THAT I FAX ALL PATIENT'S CLINICAL INFORMATION TO HER AND THE ADMISSION TEAM WOULD REVIEW IT AND SHE WOULD GET BACK TO ME.
--- NOTE | 2017-02-09 09:00 | NUR ---
RESIDUAL CHECKED BEFORE MEDS GIVEN. LESS THAN 30CC NOTED. MEDS GIVEN AND 1/2 CAN ENSURE PROVIDED. PT TOLERATED WELL.
--- NOTE | 2017-02-09 09:02 | NUR ---
CALLED RADHA AT [facility] THIS AM @ 0830 TO CHECK THE STATUS OF REFERRAL. RADHA STATED THAT ADMISSION TEAM HAD BEEN REVIEWING THE INFORMATION AND THEY WERE GOING TO HAVE A MEETING IN A FEW MINUTES AND SHE WOULD CALL ME SOON SHE KNEW SOMETHING ABOUT THE ADMISSION.
[2017-02-09 12:00] VITALS: BP 117/49; TEMP 98.6
--- NOTE | 2017-02-09 13:30 | NUR ---
PT ATE APPROX 25% OF LUNCH. RESIDUAL CHECKED. LESS THAN 40CC NOTED. 1/2 CAN OF ENSURE PROVIDED VIA PEG. PT TOLERATED WELL. HIGH FOWLERS AT THIS TIME
[2017-02-09 16:00] VITALS: BP 129/58; TEMP 98.5
[2017-02-09 20:00] VITALS: BP 120/48; TEMP 99.1
[2017-02-10] VITALS: BP 115/47; TEMP 98.2
[2017-02-10 04:00] VITALS: BP 118/70; TEMP 98.4
[2017-02-10 05:46] LABS: PLATELET COUNT 412 K/uL (152-353); POTASSIUM 3.4 mmol/L (3.6-5.2); SODIUM 137 mmol/L (136-145)
[2017-02-10 08:00] VITALS: BP 154/49; TEMP 98.8
--- NOTE | 2017-02-10 10:00 | NUR ---
PT ABLE TO EAT 1 PIECE OF TOAST AND THREE BITES OF SAUSAGE BY MOUTH. HALF A CAN OF ENSURE ALSO GIVEN TO PT VIA PEG TUBE. NO PROBLEMS NOTED.
[2017-02-10 12:00] VITALS: BP 152/52; TEMP 98.6
--- NOTE | 2017-02-10 12:44 | NUR ---
PT BEING TRANSFERRED TO [facility]. REPORT GIVEN TO KAYLYN AT THIS TIME.
[2017-02-10 16:00] VITALS: BP 134/57; TEMP 98.6
--- NOTE | 2017-02-10 18:04 | NUR ---
PT MADE AWARE THAT SHE IS BEING TRANSPORTED TO [facility]. PT HAS NO FUTHER QUESTIONS. TRANSPORT ([id number]) HERE TO TRANSPORT PT VIA [facility]. NO PROBLEMS NOTED.
== END 2017-02-10 17:30 | disposition other institution (70) | DRG 557 ==
LOC: ICU 14:30 → MED/SURG 02-03 18:50
PROVIDERS: Emergency Medicine; Specialist; ADMIT Family Medicine
DX: M62.82 Rhabdomyolysis (principal); L89.153 Pressure ulcer of sacral region, stage 3; E46 Unspecified protein-calorie malnutrition; B37.0 Candidal stomatitis; F02.81 Dementia in other diseases classified elsewhere, unspecified severity, with behavioral disturbance; E86.0 Dehydration; E88.09 Other disorders of plasma-protein metabolism, not elsewhere classified; G30.8 Other Alzheimer's disease
CPT/HCPCS: 36415; 36591; 80048; 80053; 80061; 80202; 81000; 82040; 82150; 82550; 82553; 82948; 82962; 83690; 83735; 84484; 85027; 85651; 87015; 87045; 87205; 87328; 87329; 87493; 87899; 96366; 96372; C1751; C1768; J0696; J1650; J2060; J3370; J3480; P9047; Q9963